=== PATIENT | female | born 1995 | race Caucasian/White ===

== ENCOUNTER 2021-10-22 11:56 | Observation (INO) ==
[2021-10-22] MEDS ORDERED: 0.9 % Sodium Chloride 1,000 ML IVC ONE ×2 (12:19→13:54)
[2021-10-22 12:33] LABS: Basophils % 0.2 %; Eosinophils % 0.2 %; Hematocrit 39.2 % (35.3-44.9); Hemoglobin 13.1 g/dL (11.5-15.4); Immature Granulocytes % 0.5 % (0-4); Lymphocytes # 1.2 K/mcL (0.6-4.6); Lymphocytes % 10.8 %; Mean Corpuscular HGB Conc 33.4 g/dL (31.6-35.5); Mean Corpuscular Hemoglobin 31.3 pg (28.0-33.3); Mean Corpuscular Volume 93.6 fL (83.0-100.0); Mean Platelet Volume 9.2 fL (9.4-12.4); Monocytes # 0.3 K/mcL (0.0-1.3); Neutrophils # 9.2 K/mcL (1.6-8.9); Platelet Count 301 K/mcL (140-400); Red Blood Count 4.19 M/mcL (3.82-4.97); Red Cell Distribution Width 12.2 % (11.5-14.5); Segmented Neutrophils % 85.3 %; White Blood Count 10.8 K/mcL (4.3-11.1)
[2021-10-22] MEDS: Ondansetron 4 MG/2 ML VIAL IVP ONE ×2 (12:33→14:00)
[2021-10-22 12:37] LABS: Bilirubin,Urine Negative (Negative); Blood,Urine Large (Negative); Clarity,Urine Cloudy (Clear); Color,Urine Yellow (Yellow); Glucose,Urine (UA) Normal (Normal); Ketones,Urine Negative (Negative); Leukocyte Esterase,Urine Large (Negative); Nitrite,Urine Negative (Negative); PH,Urine 6.5 pH Units (5.0-8.0); Protein,Urine 30 mg/dL (Neg-Trace); Specific Gravity,Urine 1.025 (1.010-1.025); Urobilinogen,Urine Normal (Normal)
[2021-10-22 12:41] LABS: Bacteria,Urine Moderate per hpf (None-Few); Squamous Epithelial Cell,Urine Few per hpf (None-Few); WBC,Urine 15-30 per hpf (0-3)
[2021-10-22] MEDS ORDERED: *HR* HYDROmorphone (PF) 1 MG/ML SYRINGE IVP ONE ×2 (12:44→16:08)
[2021-10-22 12:56] LABS: Alanine Aminotransferase 19 Units/L (7-52); Albumin 4.6 g/dL (3.5-5.7); Albumin/Globulin Ratio 1.8 (1.1-2.2); Alkaline Phosphatase 51 Units/L (34-104); Aspartate Amino Transferase 19 Units/L (13-39); BUN/Creatinine Ratio 33 (6-26); Bilirubin,Total 0.6 mg/dL (0.3-1.0); Blood Urea Nitrogen 27 mg/dL (6-20); Calcium 9.5 mg/dL (8.6-10.3); Carbon Dioxide 24 mEq/L (23-29); Chloride 103 mEq/L (98-107); Globulin 2.6 g/dL (2.4-3.5); Glucose 121 mg/dL (70-105); Lipase 25 Units/L (11-82); Magnesium 1.9 mg/dL (1.6-2.6); Osmolality,Calculated 290 (280-300); Sodium 137 mEq/L (136-145); Total Protein 7.2 g/dL (6.4-8.9); eGFR For African Americans > 60 (> 60); eGFR For Non-African Americans > 60 (> 60)
[2021-10-22] MEDS ORDERED: Piperacillin/Tazobactam 3.375 GM in 0.9 % Sodium Chloride Mini Bag 100 ML IVPB ONE (13:49)
[2021-10-22] MEDS ORDERED: Ondansetron 4 MG/2 ML VIAL IVP ONE ×2 (13:54→17:57)
[2021-10-22] MEDS ORDERED: Metoclopramide 10 MG/2 ML VIAL IVP ONE (16:08)
[2021-10-22 16:40] LABS: INR 1.1; Prothrombin Time 12.8 Seconds (9.4-12.1)
[2021-10-22 16:42] LABS: Activated Partial Thrombo Time 33.1 Seconds (26.0-36.0)
[2021-10-22] MEDS ORDERED: *HR* HYDROmorphone (PF) 1 MG/ML SYRINGE IVP PRN (17:57)
[2021-10-22] MEDS ORDERED: Naloxone 0.4 MG/ML INJ IVP PRN (17:57)
[2021-10-22] MEDS ORDERED: Metoclopramide 10 MG/2 ML VIAL IVP PRN (17:57)
[2021-10-22] MEDS: D5% in 0.45% NACL 1,000 ML IVC SCH (18:36)
[2021-10-22] MEDS: Ondansetron 4 MG/2 ML VIAL IVP PRN (20:19)
[2021-10-22] MEDS: Ketorolac 30 MG/ML VIAL IVP PRN (20:19)
[2021-10-23] MEDS: Ondansetron 4 MG/2 ML VIAL IVP PRN (03:28)
[2021-10-23] MEDS: Piperacillin/Tazobactam 3.375 GM in 0.9 % Sodium Chloride Mini Bag 100 ML IVPB SCH ×3 (03:29→17:12)
[2021-10-23] MEDS: D5% in 0.45% NACL 1,000 ML IVC SCH ×2 (03:30→12:11)
[2021-10-23] MEDS: Ketorolac 30 MG/ML VIAL IVP PRN ×2 (03:30→11:09)
[2021-10-23 05:43] LABS: Hematocrit 30.1 % (35.3-44.9); Hemoglobin 9.9 g/dL (11.5-15.4); Mean Corpuscular HGB Conc 32.9 g/dL (31.6-35.5); Mean Corpuscular Hemoglobin 31.2 pg (28.0-33.3); Mean Platelet Volume 9.6 fL (9.4-12.4); Platelet Count 216 K/mcL (140-400); Red Blood Count 3.17 M/mcL (3.82-4.97); Red Cell Distribution Width 12.2 % (11.5-14.5); White Blood Count 9.6 K/mcL (4.3-11.1)
[2021-10-23 05:56] LABS: Albumin 3.3 g/dL (3.5-5.7); Albumin/Globulin Ratio 1.8 (1.1-2.2); Bilirubin,Direct 0.1 mg/dL (0.0-0.2); Bilirubin,Indirect 0.3 mg/dL (0.0-1.0); Bilirubin,Total 0.4 mg/dL (0.3-1.0); Globulin 1.8 g/dL (2.4-3.5); Total Protein 5.1 g/dL (6.4-8.9)
[2021-10-23] MEDS ORDERED: *HR* Enoxaparin 40 MG/0.4 ML SYRINGE SQ SCH (07:00)
[2021-10-23 14:13] LABS: Basophils % 0.1 %; Eosinophils # 0.1 K/mcL (0.0-0.6); Eosinophils % 0.8 %; Hemoglobin 9.9 g/dL (11.5-15.4); Immature Granulocytes % 0.3 % (0-4); Lymphocytes # 1.8 K/mcL (0.6-4.6); Lymphocytes % 23.7 %; Mean Corpuscular Hemoglobin 31.5 pg (28.0-33.3); Mean Corpuscular Volume 95.5 fL (83.0-100.0); Monocytes # 0.7 K/mcL (0.0-1.3); Monocytes % 9.1 %; Platelet Count 198 K/mcL (140-400); Red Blood Count 3.14 M/mcL (3.82-4.97); Red Cell Distribution Width 12.6 % (11.5-14.5); White Blood Count 7.6 K/mcL (4.3-11.1)
[2021-10-23 16:44] VITALS: BP 96/65; PULSE 90; RESP 18; TEMP 98.7; O2SAT 99
[2021-10-23] MEDS ORDERED: Mirtazapine 15 MG TABLET PO SCH (18:00)
== END 2021-10-23 19:43 | disposition home or self-care (01) ==
LOC: INPGRE 11:56 → EMEROOGRE 11:56 → INPGRE 17:43
PROVIDERS: ADMIT Family Medicine; ATTEND Family Medicine